=== PATIENT | male | born 1965 | race African-American/Black ===

== ENCOUNTER 2016-12-15 | Emergency (ER) | payer MEDICAID, OTHER ==
[~2016-12-15] VITALS: Ht 170.2 cm; Wt 73.0 kg
[2016-12-15] MEDS ORDERED: IBUPROFEN 600MG TABLET PO ONE (01:00)
[2016-12-15 01:07] VITALS: BP 151/96
== END 2016-12-15 02:57 | disposition home or self-care (01) ==
LOC: ER 00:11
DX: S60.211A Contusion of right wrist, initial encounter (principal); S60.221A Contusion of right hand, initial encounter; F17.200 Nicotine dependence, unspecified, uncomplicated; Y04.0XXA Assault by unarmed brawl or fight, initial encounter; Y93.89 Activity, other specified; Y92.89 Other specified places as the place of occurrence of the external cause; Y99.8 Other external cause status
CPT/HCPCS: 73110; 73130; 99284

== ENCOUNTER 2017-10-24 13:27 | Inpatient (IN) | payer MEDICAID, OTHER ==
[~2017-10-24] VITALS: Ht 165.1 cm; Wt 75.7 kg
[~2017-10-24 13:27] MED LIST: HEPARIN SODIUM 1,000 UNIT/1ML VIAL IV ONE
[2017-10-24] MEDS ORDERED: SODIUM CHLORIDE 0.9% 1,000 ML IV ONE (14:20)
[2017-10-24 14:28] LABS: BASOPHILS % 0.5 % (0.0-2.0); EOSINOPHILS % 0.7 % (0.0-5.0); HEMATOCRIT. 35.3 % (42.0-52.0); HEMOGLOBIN. 11.7 g/dL (14.0-18.0); LYMPHOCYTES % 7.5 % (20.0-50.0); MEAN CORPUSCULAR HEMOGLOBIN 28.9 pg (28.0-32.0); MEAN CORPUSCULAR VOLUME 87.4 fL (80.0-94.0); MEAN PLATELET VOLUME 8.5 fl (7.4-10.4); MONOCYTES % 6.6 % (2.0-8.0); NEUTROPHILS % 84.7 % (40.0-76.0); PLATELET 241 x1000/uL (130-400); RED BLOOD CELL COUNT 4.04 mill/uL (4.7-6.1); RED CELL DISTRIBUTION WIDTH 15.2 % (11.6-14.6)
[2017-10-24] MEDS ORDERED: ONDANSETRON HCL 4MG/2ML VIAL IV ONE (14:30)
[2017-10-24 14:37] LABS: INR 1.2; PARTIAL THROMBOPLASTIN TIME 32.9 sec (23.4-31.0); PROTHROMBIN TIME 12.2 sec (9.4-11.6)
[2017-10-24 14:48] LABS: CARBON DIOXIDE 23 mEq/L (21-32); CHLORIDE 100 mEq/L (98-107)
[2017-10-24] MEDS ORDERED: ASPIRIN 325MG EC TABLET PO ONE (15:00)
[2017-10-24] MEDS ORDERED: ENOXAPARIN 80MG/0.8ML SYR SUBCUT ONE (15:15)
[2017-10-24] MEDS ORDERED: LIDOCAINE HCL 1% 20ML VIAL (Pyxis) INJ ONE (16:06)
[2017-10-24] MEDS ORDERED: FENTANYL CITRATE/PF 50MCG/ML 2ML VIAL ONE (16:06)
[2017-10-24] MEDS ORDERED: MIDAZOLAM HCL 2 MG/2 ML VIAL ONE (16:06)
[2017-10-24] MEDS ORDERED: IOVERSOL 240MG/ML 100ML BOTTLE IV ONE (16:07)
[2017-10-24] MEDS ORDERED: IODIXANOL 320MG/ML 100 ML BOTTLE IV ONE (16:07)
[2017-10-24] MEDS ORDERED: SODIUM CHLORIDE 0.9% 1,000 ML IV SCH (16:15)
[2017-10-24] MEDS ORDERED: CLOPIDOGREL 75MG TABLET ONE (17:07)
[2017-10-24] MEDS ORDERED: ATROPINE SULFATE 1MG/10ML SYR IV PRN (17:15)
[2017-10-24 17:35] VITALS: BP 106/73
[2017-10-24 18:00] VITALS: BP 93/60
[2017-10-24] MEDS ORDERED: ONDANSETRON HCL 4MG/2ML VIAL IV PRN (18:15)
[2017-10-24] MEDS ORDERED: HYDROCODONE/ACETAMINOPHEN 5/325MG TABLET PO PRN (18:30)
[2017-10-24 20:00] VITALS: BP 103/62
[2017-10-24] MEDS ORDERED: SODIUM CHL 0.45% + KCL 20MEQ/L 1,000 ML IV SCH (20:00)
[2017-10-24 21:00] VITALS: BP 100/64
[2017-10-24] MEDS: ATORVASTATIN CALCIUM 40MG TABLET PO SCH (21:12)
[2017-10-24] MEDS: ACETAMINOPHEN 325MG TABLET PO PRN (21:26)
[2017-10-24 22:00] VITALS: BP 104/67
[2017-10-24 23:00] VITALS: BP 96/43
[2017-10-25] VITALS (12 sets, daily range): BP systolic 97–129; BP diastolic 50–72
[2017-10-25 02:43] LABS: *AMPHETAMINES SCREEN URINE NEGATIVE (NEGATIVE); *BARBITURATES SCREEN URINE NEGATIVE (NEGATIVE); *BENZODIAZEPINES SCREEN URINE PRESUMTIVE POSITIVE (NEGATIVE); *COCAINE SCREEN URINE NEGATIVE (NEGATIVE); CANNABINOID URINE SCREEN NEGATIVE (NEGATIVE); METHADONE URINE SCREEN NEGATIVE (NEGATIVE); OPIATES URINE SCREEN NEGATIVE (NEGATIVE); PHENCYCLIDINE URINE SCREEN NEGATIVE (NEGATIVE)
[2017-10-25] MEDS: ACETAMINOPHEN 325MG TABLET PO PRN (04:17)
[2017-10-25 06:30] LABS: HEMATOCRIT. 34.4 % (42.0-52.0); HEMOGLOBIN. 11.6 g/dL (14.0-18.0); MEAN CORPUSCULAR HEMOGLOBIN 29.5 pg (28.0-32.0); MEAN CORPUSCULAR VOLUME 87.8 fL (80.0-94.0); MEAN PLATELET VOLUME 9.6 fl (7.4-10.4); PLATELET 188 x1000/uL (130-400); RED BLOOD CELL COUNT 3.92 mill/uL (4.7-6.1); RED CELL DISTRIBUTION WIDTH 15.3 % (11.6-14.6)
[2017-10-25 06:35] LABS: CHLORIDE 104 mEq/L (98-107)
[2017-10-25 07:46] LABS: CARBON DIOXIDE 20 mEq/L (21-32)
[2017-10-25] MEDS: CLOPIDOGREL 75MG TABLET PO SCH (09:38)
[2017-10-25] MEDS: ASPIRIN 81MG EC TABLET PO SCH (10:30)
[2017-10-25 16:16] LABS: PLATELET ESTIMATE NORMAL
[2017-10-25] MEDS ORDERED: MAGNESIUM 2 G PREMIX 50 ML IV NR (18:30)
[2017-10-25] MEDS: ATORVASTATIN CALCIUM 40MG TABLET PO SCH (20:25)
[2017-10-26] VITALS (8 sets, daily range): BP systolic 100–125; BP diastolic 61–91
[2017-10-26 06:29] LABS: BASOPHILS % 0.2 % (0.0-2.0); EOSINOPHILS % 6.3 % (0.0-5.0); HEMATOCRIT. 34.7 % (42.0-52.0); HEMOGLOBIN. 11.6 g/dL (14.0-18.0); LYMPHOCYTES % 8.1 % (20.0-50.0); MEAN CORPUSCULAR HEMOGLOBIN 29.5 pg (28.0-32.0); MEAN CORPUSCULAR VOLUME 88.1 fL (80.0-94.0); MEAN PLATELET VOLUME 10.2 fl (7.4-10.4); MONOCYTES % 8.8 % (2.0-8.0); NEUTROPHILS % 76.6 % (40.0-76.0); PLATELET 168 x1000/uL (130-400); RED BLOOD CELL COUNT 3.93 mill/uL (4.7-6.1); RED CELL DISTRIBUTION WIDTH 15.4 % (11.6-14.6)
[2017-10-26] MEDS: CLOPIDOGREL 75MG TABLET PO SCH (08:16)
[2017-10-26] MEDS: ASPIRIN 81MG EC TABLET PO SCH (08:16)
[2017-10-26 08:17] LABS: CHLORIDE 104 mEq/L (98-107)
[2017-10-26 08:52] LABS: CARBON DIOXIDE 21 mEq/L (21-32)
[2017-10-26] MEDS ORDERED: POTASSIUM CHLORIDE 20MEQ TABLET SR PO NR (09:30)
[2017-10-26] MEDS ORDERED: LIP40 PO (11:17)
== END 2017-10-26 11:34 | disposition home or self-care (01) | DRG 175 ==
LOC: ER 13:36 → 3WST 15:17 → EDBEDREQTM 15:20 → EDBEDREQ 15:20 → ENRESERV 15:39 → CANRESERV 15:39
PROVIDERS: ADMIT Internal Medicine; ATTEND Internal Medicine
PROC: 4A023N7 Measurement of Cardiac Sampling and Pressure, Left Heart, Percutaneous Approach (ICD-10-PCS; principal; 2017-10-24)
PROC: 027035Z Dilation of Coronary Artery, One Artery with Two Drug-eluting Intraluminal Devices, Percutaneous Approach (ICD-10-PCS; 2017-10-24)
DX: T82.855A Stenosis of coronary artery stent, initial encounter (principal); I21.4 Non-ST elevation (NSTEMI) myocardial infarction; N17.0 Acute kidney failure with tubular necrosis; I95.9 Hypotension, unspecified; I11.9 Hypertensive heart disease without heart failure; E87.6 Hypokalemia; D64.9 Anemia, unspecified; E78.5 Hyperlipidemia, unspecified; F17.210 Nicotine dependence, cigarettes, uncomplicated; I25.10 Atherosclerotic heart disease of native coronary artery without angina pectoris; Z79.02 Long term (current) use of antithrombotics/antiplatelets
CPT/HCPCS: 36415; 71045; 80048; 80061; 80305; 83605; 83735; 83880; 84443; 84484; 85025; 85347; 85610; 85730; 87040; 87086; 87804; 92928; 93005; 93306; 93458; 96361; 96374; 96375; 99285; C1760; C1769; C1887; C1893; J1644; J1650; J2250; J2405; J3010; J3475; J3480; J3490; J7030; Q9967

== ENCOUNTER 2019-06-13 10:46 | Inpatient (IN) | payer MEDICAID ==
[~2019-06-13] VITALS: Ht 152.4 cm; Wt 74.5 kg
[~2019-06-13 10:46] MED LIST changes: -HEPARIN SODIUM 1,000 UNIT/1ML VIAL IV ONE; +LIP40 PO
[2019-06-13 12:30] LABS: BASOPHILS % 1.2 % (0.0-2.0); EOSINOPHILS % 5.1 % (0.0-5.0); HEMATOCRIT. 41.6 % (42.0-52.0); HEMOGLOBIN. 13.7 g/dL (14.0-18.0); LYMPHOCYTES % 36.2 % (20.0-50.0); MEAN CORPUSCULAR VOLUME 82.1 fL (80.0-94.0); MEAN PLATELET VOLUME 9.6 fl (7.4-10.4); MONOCYTES % 9.8 % (2.0-8.0); NEUTROPHILS % 47.7 % (40.0-76.0); PLATELET 264 x1000/uL (130-400); RED BLOOD CELL COUNT 5.07 mill/uL (4.7-6.1)
[2019-06-13 12:41] LABS: CHLORIDE 106 mEq/L (98-107)
[2019-06-13 12:45] LABS: ETHANOL BLOOD < 10 mg/dL
[2019-06-13 12:49] LABS: CLARITY URINE CLEAR (CLEAR); COLOR URINE YELLOW (YELLOW); KETONES URINE NEGATIVE (NEGATIVE); LEUKOCYTE ESTERASE URINE NEGATIVE (NEGATIVE); NITRITE URINE NEGATIVE (NEGATIVE); OCCULT BLOOD URINE NEGATIVE (NEGATIVE); PROTEIN URINE NEGATIVE (NEGATIVE); SPECIFIC GRAVITY URINE 1.016 (1.005-1.030); UROBILINOGEN URINE 0.2 E.U./dL (0.2-1.0)
[2019-06-13 13:12] LABS: *AMPHETAMINES SCREEN URINE NEGATIVE (NEGATIVE); *BARBITURATES SCREEN URINE NEGATIVE (NEGATIVE); *BENZODIAZEPINES SCREEN URINE NEGATIVE (NEGATIVE); *COCAINE SCREEN URINE NEGATIVE (NEGATIVE); METHADONE URINE SCREEN NEGATIVE (NEGATIVE); OPIATES URINE SCREEN NEGATIVE (NEGATIVE)
[2019-06-13 13:13] LABS: CANNABINOID URINE SCREEN PRESUMTIVE POSITIVE (NEGATIVE); PHENCYCLIDINE URINE SCREEN NEGATIVE (NEGATIVE)
[2019-06-13] MEDS ORDERED: HYDROCODONE/ACETAMINOPHEN 5/325MG TABLET PO ONE (13:30)
[2019-06-13] MEDS ORDERED: ASPIRIN 325MG EC TABLET PO NR (14:45)
[2019-06-13] MEDS ORDERED: IOHEXOL-350 100 ML BOTTLE ONE (15:15)
[2019-06-13] MEDS ORDERED: IPRATROPIUM/ALBUTEROL 0.5-3(2.5)MG/3ML NEB HHN PRN (15:30)
[2019-06-13] MEDS ORDERED: ACETAMINOPHEN 325MG TABLET PO PRN (15:30)
[2019-06-13] MEDS ORDERED: MAGNESIUM/ALUMINUM HYDROXIDE/SIMETHICONE 30ML UDC PO PRN (15:30)
[2019-06-13] MEDS ORDERED: NITROGLYCERIN 0.4MG TABLET SL SL PRN (15:30)
[2019-06-13] MEDS ORDERED: CLONIDINE 0.1MG TABLET PO PRN (15:30)
[2019-06-13] MEDS ORDERED: GUAIFENESIN 200MG/10ML SUGAR FREE UDC PO PRN (15:30)
[2019-06-13] MEDS ORDERED: LORAZEPAM 0.5MG TABLET PO PRN (15:30)
[2019-06-13] MEDS ORDERED: KETOROLAC 15MG/ML VIAL IV PRN (15:30)
[2019-06-13] MEDS ORDERED: ONDANSETRON HCL 4MG/2ML INJ IV PRN (15:30)
[2019-06-13] MEDS ORDERED: DOCUSATE SODIUM 100MG CAPSULE PO PRN (15:30)
[2019-06-13 21:00] VITALS: BP 146/77
[2019-06-13] MEDS ORDERED: ZOLPIDEM TARTRATE 5MG TABLET PO PRN (21:30)
[2019-06-13] MEDS ORDERED: ENOXAPARIN 40MG/0.4ML SYR SUBCUT SCH (23:00)
[2019-06-13] MEDS ORDERED: ATORVASTATIN CALCIUM 40MG TABLET PO SCH (23:00)
[2019-06-13] MEDS: METOPROLOL TARTRATE 25MG TABLET PO SCH (23:28)
[2019-06-13] MEDS: FAMOTIDINE 20MG TABLET PO SCH (23:28)
[2019-06-14] VITALS: BP 112/64
[2019-06-14 00:31] LABS: CREATINE KINASE 178 IU/L (39-308)
[2019-06-14 00:32] LABS: CREATINE KINASE MB FRACTION 1.4 ng/mL (0.5-3.6)
[2019-06-14] MEDS ORDERED: OMEP20TA2 PO (01:45)
[2019-06-14] MEDS ORDERED: ASPI-1393 PO (01:45)
[2019-06-14] MEDS ORDERED: AMLO5TAB88 PO (01:46)
[2019-06-14] MEDS ORDERED: CLOP75TA33 PO (01:47)
[2019-06-14] MEDS ORDERED: METO25TA6 PO (01:48)
[2019-06-14 04:00] VITALS: BP 112/68
[2019-06-14 08:00] VITALS: BP 122/69
[2019-06-14 08:42] LABS: CREATINE KINASE 178 IU/L (39-308)
[2019-06-14 08:45] LABS: LDL CHOLESTEROL 145 mg/dL (5-100)
[2019-06-14 08:47] LABS: CREATINE KINASE MB FRACTION 1.3 ng/mL (0.5-3.6)
[2019-06-14 08:50] LABS: HDL CHOLESTEROL 42 mg/dL (40-59)
[2019-06-14] MEDS ORDERED: ASPIRIN 325MG EC TABLET PO SCH (09:00)
[2019-06-14] MEDS: FAMOTIDINE 20MG TABLET PO SCH (09:01)
[2019-06-14] MEDS: METOPROLOL TARTRATE 25MG TABLET PO SCH (09:09)
[2019-06-14 10:31] VITALS: BP 122/69
[2019-06-14 12:00] VITALS: BP 134/73
== END 2019-06-14 13:27 | disposition home or self-care (01) | DRG 198 ==
LOC: ER 10:46 → 6WST 16:59 → EDBEDREQ 17:00 → ENRESERV 19:27
PROVIDERS: ADMIT Internal Medicine; ATTEND Internal Medicine
DX: R07.89 Other chest pain (principal); I25.2 Old myocardial infarction; I11.9 Hypertensive heart disease without heart failure; E78.00 Pure hypercholesterolemia, unspecified; F12.10 Cannabis abuse, uncomplicated; K57.90 Diverticulosis of intestine, part unspecified, without perforation or abscess without bleeding; Z79.899 Other long term (current) drug therapy
CPT/HCPCS: 36415; 71045; 71275; 74174; 80061; 80305; 80320; 81003; 82550; 82553; 83036; 83880; 84484; 93005; 93970; 99285; J1650; Q9967; G0480

== ENCOUNTER 2019-06-15 09:42 | Emergency (ER) | payer MEDICAID ==
[~2019-06-15] VITALS: Ht 165.1 cm; Wt 74.0 kg
[~2019-06-15 09:42] MED LIST changes: +AMLO5TAB88 PO; +ASPI-1393 PO; +CLOP75TA33 PO; +METO25TA6 PO; +OMEP20TA2 PO
[2019-06-15] MEDS ORDERED: KETOROLAC 30MG/ML VIAL IM ONE (10:15)
[2019-06-15 10:18] VITALS: BP 131/82
== END 2019-06-15 10:45 | disposition home or self-care (01) ==
LOC: ER 09:51
DX: M54.5 Low back pain (principal); I25.2 Old myocardial infarction; I10 Essential (primary) hypertension; Z79.82 Long term (current) use of aspirin; Z79.899 Other long term (current) drug therapy
CPT/HCPCS: 96372; 99283; J1885

== ENCOUNTER 2019-08-23 12:40 | Inpatient (IN) | payer MEDICAID ==
[~2019-08-23] VITALS: Ht 165.1 cm; Wt 76.2 kg
[2019-08-23 15:32] LABS: BASOPHILS % 1.2 % (0.0-2.0); EOSINOPHILS % 6.2 % (0.0-5.0); HEMATOCRIT. 38.9 % (42.0-52.0); HEMOGLOBIN. 12.9 g/dL (14.0-18.0); LYMPHOCYTES % 25.3 % (20.0-50.0); MEAN CORPUSCULAR HEMOGLOBIN 27.6 pg (28.0-32.0); MEAN CORPUSCULAR VOLUME 83.3 fL (80.0-94.0); MEAN PLATELET VOLUME 9.1 fl (7.4-10.4); MONOCYTES % 8.7 % (2.0-8.0); NEUTROPHILS % 58.6 % (40.0-76.0); PLATELET 281 x1000/uL (130-400); RED BLOOD CELL COUNT 4.67 mill/uL (4.7-6.1); RED CELL DISTRIBUTION WIDTH 14.1 % (11.6-14.6)
[2019-08-23 15:33] LABS: CHLORIDE 104 mEq/L (98-107)
[2019-08-24] VITALS (7 sets, daily range): BP systolic 114–149; BP diastolic 71–78
[2019-08-24] MEDS ORDERED: MORPHINE SULFATE 2 MG/ML CPJ (NOT FOR IM USE) IV PRN (01:30)
[2019-08-24] MEDS ORDERED: ONDANSETRON HCL 4MG/2ML INJ IV PRN (01:30)
[2019-08-24 07:05] LABS: BASOPHILS % 1.2 % (0.0-2.0); EOSINOPHILS % 6.3 % (0.0-5.0); HEMOGLOBIN. 13.4 g/dL (14.0-18.0); LYMPHOCYTES % 29.4 % (20.0-50.0); MEAN CORPUSCULAR VOLUME 82.7 fL (80.0-94.0); MEAN PLATELET VOLUME 9.6 fl (7.4-10.4); MONOCYTES % 10.9 % (2.0-8.0); NEUTROPHILS % 52.2 % (40.0-76.0); PLATELET 292 x1000/uL (130-400); RED BLOOD CELL COUNT 4.96 mill/uL (4.7-6.1)
[2019-08-24 07:18] LABS: CHLORIDE 106 mEq/L (98-107)
[2019-08-24 07:33] LABS: LDL CHOLESTEROL 68 mg/dL (5-100)
[2019-08-24 07:35] LABS: HDL CHOLESTEROL 33 mg/dL (40-59)
[2019-08-24] MEDS: OMEPRAZOLE 20MG CAPSULE EXTENDED RELEASE PO SCH (08:15)
[2019-08-24] MEDS: METOPROLOL TARTRATE 25MG TABLET PO SCH ×2 (08:37→20:34)
[2019-08-24] MEDS: ASPIRIN 81MG TABLET PO SCH (08:37)
[2019-08-24] MEDS: AMLODIPINE 5MG TABLET PO SCH (08:37)
[2019-08-24 16:16] LABS: CLARITY URINE CLEAR (CLEAR); COLOR URINE YELLOW (YELLOW); KETONES URINE NEGATIVE (NEGATIVE); LEUKOCYTE ESTERASE URINE NEGATIVE (NEGATIVE); NITRITE URINE NEGATIVE (NEGATIVE); OCCULT BLOOD URINE NEGATIVE (NEGATIVE); PROTEIN URINE NEGATIVE (NEGATIVE); SPECIFIC GRAVITY URINE 1.023 (1.005-1.030)
[2019-08-24 16:39] LABS: *AMPHETAMINES SCREEN URINE NEGATIVE (NEGATIVE)
[2019-08-24 16:40] LABS: *BARBITURATES SCREEN URINE NEGATIVE (NEGATIVE); *BENZODIAZEPINES SCREEN URINE NEGATIVE (NEGATIVE); *COCAINE SCREEN URINE NEGATIVE (NEGATIVE); CANNABINOID URINE SCREEN PRESUMTIVE POSITIVE (NEGATIVE); METHADONE URINE SCREEN NEGATIVE (NEGATIVE); OPIATES URINE SCREEN NEGATIVE (NEGATIVE); PHENCYCLIDINE URINE SCREEN NEGATIVE (NEGATIVE)
[2019-08-24] MEDS ORDERED: ATORVASTATIN CALCIUM 40MG TABLET PO SCH (21:00)
[2019-08-25] VITALS (7 sets, daily range): BP systolic 116–130; BP diastolic 62–84
[2019-08-25] MEDS: ASPIRIN 81MG TABLET PO SCH (09:11)
[2019-08-25] MEDS: OMEPRAZOLE 20MG CAPSULE EXTENDED RELEASE PO SCH (09:11)
[2019-08-25] MEDS: METOPROLOL TARTRATE 25MG TABLET PO SCH (09:12)
[2019-08-25] MEDS: AMLODIPINE 5MG TABLET PO SCH (09:12)
[2019-08-25] MEDS ORDERED: REGADENOSON 0.4 MG/5 ML IV NR (09:55)
[2019-08-25] MEDS ORDERED: CLOPIDOGREL 75MG TABLET PO SCH (09:55)
[2019-08-25] MEDS ORDERED: REGADENOSON 0.4 MG/5 ML IV ONE (14:00)
== END 2019-08-25 16:40 | disposition home or self-care (01) | DRG 203 ==
LOC: ER 12:40 → EDBEDREQ 18:34 → ENRESERV 23:41 → 7WST 08-24 00:23
PROVIDERS: ADMIT Internal Medicine; ATTEND Internal Medicine
DX: M94.0 Chondrocostal junction syndrome [Tietze] (principal); E78.5 Hyperlipidemia, unspecified; I25.10 Atherosclerotic heart disease of native coronary artery without angina pectoris; F12.90 Cannabis use, unspecified, uncomplicated; I10 Essential (primary) hypertension; I25.2 Old myocardial infarction; Z95.5 Presence of coronary angioplasty implant and graft; Z79.899 Other long term (current) drug therapy
CPT/HCPCS: 36415; 71045; 78452; 80048; 80061; 80305; 81003; 83880; 84443; 84484; 85379; 93005; 93017; 93306; 99285; A9500; J2785

== ENCOUNTER 2019-10-02 11:47 | Emergency (ER) | payer MEDICAID ==
[~2019-10-02] VITALS: Ht 165.1 cm; Wt 78.0 kg
[~2019-10-02 11:47] MED LIST changes: -ASPI-1393 PO; +ASPI-1497 PO
[2019-10-02] MEDS ORDERED: IBUPROFEN 600MG TABLET PO ONE (13:45)
[2019-10-02 13:54] VITALS: BP 128/77
== END 2019-10-02 13:54 | disposition home or self-care (01) ==
LOC: ER 11:47
DX: R68.84 Jaw pain (principal); K08.89 Other specified disorders of teeth and supporting structures
CPT/HCPCS: 99283

== ENCOUNTER 2019-11-03 10:42 | Emergency (ER) | payer MEDICAID, OTHER ==
[~2019-11-03] VITALS: Ht 172.7 cm; Wt 87.0 kg
[2019-11-03 10:50] VITALS: BP 116/71
== END 2019-11-03 11:50 | disposition home or self-care (01) ==
LOC: ER 10:42
DX: Z48.02 Encounter for removal of sutures (principal)
CPT/HCPCS: 99281

== ENCOUNTER 2020-01-12 10:48 | Emergency (ER) | payer OTHER ==
[~2020-01-12] VITALS: Ht 177.8 cm; Wt 63.0 kg
[2020-01-12 12:30] VITALS: BP 150/88
== END 2020-01-12 12:32 | disposition home or self-care (01) ==
LOC: ER 10:48
DX: R43.0 Anosmia (principal); Z71.89 Other specified counseling; R03.0 Elevated blood-pressure reading, without diagnosis of hypertension
CPT/HCPCS: 71045; 87804; 99284

== ENCOUNTER 2020-04-23 09:10 | Emergency (ER) | payer OTHER ==
[~2020-04-23] VITALS: Ht 165.1 cm; Wt 75.0 kg
[2020-04-23] MEDS ORDERED: MORPHINE SULFATE 4 MG/ML CPJ (NOT FOR IM USE) IV STA (09:25)
[2020-04-23 09:46] LABS: BASOPHILS % 1.3 % (0.0-2.0); EOSINOPHILS % 7.9 % (0.0-5.0); HEMATOCRIT. 38.9 % (42.0-52.0); HEMOGLOBIN. 12.7 g/dL (14.0-18.0); LYMPHOCYTES % 30.2 % (20.0-50.0); MEAN CORPUSCULAR VOLUME 82.5 fL (80.0-94.0); MEAN PLATELET VOLUME 8.6 fl (7.4-10.4); MONOCYTES % 8.4 % (2.0-8.0); NEUTROPHILS % 52.2 % (40.0-76.0); PLATELET 285 x1000/uL (130-400); RED BLOOD CELL COUNT 4.71 mill/uL (4.7-6.1); RED CELL DISTRIBUTION WIDTH 13.8 % (11.6-14.6)
[2020-04-23 09:56] LABS: CHLORIDE 105 mEq/L (98-107); PROTHROMBIN TIME 10.8 sec (9.6-11.0)
[2020-04-23 10:32] LABS: CLARITY URINE CLEAR (CLEAR); COLOR URINE YELLOW (YELLOW); KETONES URINE NEGATIVE (NEGATIVE); LEUKOCYTE ESTERASE URINE NEGATIVE (NEGATIVE); NITRITE URINE NEGATIVE (NEGATIVE); OCCULT BLOOD URINE NEGATIVE (NEGATIVE); PROTEIN URINE NEGATIVE (NEGATIVE); SPECIFIC GRAVITY URINE 1.015 (1.005-1.030); UROBILINOGEN URINE 0.2 E.U./dL (0.2-1.0)
[2020-04-23 11:50] VITALS: BP 148/78
== END 2020-04-23 11:50 | disposition home or self-care (01) ==
LOC: ER 09:10
DX: R10.32 Left lower quadrant pain (principal); I25.2 Old myocardial infarction; Z79.899 Other long term (current) drug therapy; Z98.890 Other specified postprocedural states; Z79.4 Long term (current) use of insulin; Z79.82 Long term (current) use of aspirin
CPT/HCPCS: 36415; 74176; 80053; 81003; 83690; 85025; 85610; 93005; 96374; 99285; J2270

== ENCOUNTER 2020-08-13 10:57 | Emergency (ER) | payer MEDICAID, OTHER ==
[~2020-08-13] VITALS: Ht 165.1 cm; Wt 75.0 kg
[~2020-08-13 10:57] MED LIST changes: +BENA20TA10 MT; +OMEG100020 MT
[2020-08-13 11:39] VITALS: BP 141/88
[2020-08-13] MEDS ORDERED: IBUPROFEN 600MG TABLET PO STA (11:39)
[2020-08-13 12:16] LABS: CLARITY URINE CLEAR (CLEAR); COLOR URINE YELLOW (YELLOW); KETONES URINE NEGATIVE (NEGATIVE); LEUKOCYTE ESTERASE URINE NEGATIVE (NEGATIVE); NITRITE URINE NEGATIVE (NEGATIVE); OCCULT BLOOD URINE NEGATIVE (NEGATIVE); PROTEIN URINE NEGATIVE (NEGATIVE); SPECIFIC GRAVITY URINE 1.019 (1.005-1.030); UROBILINOGEN URINE 0.2 E.U./dL (0.2-1.0)
== END 2020-08-13 13:47 | disposition home or self-care (01) ==
LOC: ER 10:57
DX: K40.90 Unilateral inguinal hernia, without obstruction or gangrene, not specified as recurrent (principal); F12.10 Cannabis abuse, uncomplicated; I25.2 Old myocardial infarction; Z79.899 Other long term (current) drug therapy; Z98.890 Other specified postprocedural states; Z79.82 Long term (current) use of aspirin
CPT/HCPCS: 81003; 99284

== ENCOUNTER 2020-10-14 11:50 | Emergency (ER) | payer MEDICAID ==
[~2020-10-14] VITALS: Ht 165.1 cm; Wt 75.0 kg
[2020-10-14] MEDS ORDERED: IBUPROFEN 600MG TABLET PO ONE (13:00)
[2020-10-14 13:28] VITALS: BP 122/78
== END 2020-10-14 13:28 | disposition home or self-care (01) ==
LOC: ER 11:50
DX: S40.011A Contusion of right shoulder, initial encounter (principal); W18.2XXA Fall in (into) shower or empty bathtub, initial encounter; Y93.E1 Activity, personal bathing and showering; Y92.031 Bathroom in apartment as the place of occurrence of the external cause; I10 Essential (primary) hypertension; I25.2 Old myocardial infarction; Z95.5 Presence of coronary angioplasty implant and graft; F12.90 Cannabis use, unspecified, uncomplicated; Z79.899 Other long term (current) drug therapy; Z79.82 Long term (current) use of aspirin
CPT/HCPCS: 99282

== ENCOUNTER 2023-11-19 13:32 | Emergency (ER) | payer MEDICAID ==
[~2023-11-19 13:32] MED LIST changes: +BENA-8 MT; -BENA20TA10 MT; -OMEP20TA2 PO; +OMEP20TA23 PO
[2023-11-19 13:42] VITALS: PULSE 95; RESP 16
== END 2023-11-19 15:10 | disposition left against medical advice (07) ==
LOC: ER 13:32
DX: R07.89 Other chest pain (principal); Z53.21 Procedure and treatment not carried out due to patient leaving prior to being seen by health care provider
CPT/HCPCS: 99281